=== PATIENT | male | born 1970 | race Two or more races ===

== ENCOUNTER 2016-07-17 14:03 | Emergency (ER) | payer MEDICAID ==
[~2016-07-17] VITALS: Ht 167.6 cm; Wt 68.0 kg
[~2016-07-17 14:03] MED LIST: IBUPROFEN600 MG ORAL; TRAMADOL HCL50 MG ORAL
[2016-07-17 14:44] LABS: APPEARANCE,URINE CLEAR; KETONES,URINE NEGATIVE (NEGATIVE); LEUKOCYTE ESTERASE ,URINE 1+ (NEGATIVE); NITRITE,URINE NEGATIVE (NEGATIVE); PH,URINE 5 (4.5-8.0); PROTEIN,URINE NEGATIVE (NEGATIVE); UROBILINOGEN,URINE NORMAL MG/DL (0.0-1.0)
--- NOTE | 2016-07-17 14:55 | Emergency Room Report ---
History of Present Illness General Chief Complaint: Back Pain-No Injury Source: Patient Present Illness HPI 46 YO Male presents to the ED c/o testicular pain progressive since last night, rated as 6/10 in severity , no relief from IBU PO, denies swelling and erythema. Patient denies any discharge. Pt. reports low back pain on the left side as well. denies straining, constipation, diarrhea or recent illness. pt. reports recent heavy lifting. denies hx of hernias. denies dysuria, frequency, urgency or hematuria. denies trauma. denies abdominal pain, rashes, hx of STD or recent unprotected intercourse. denies swollen or tender lymph nodes. Denies CP, Palpitations, LOC, AMS, dizziness, Changes in Vision, Sensation, paresthesias, or a sudden severe headache. Allergies: Coded Allergies: No Known Allergies (Unverified , 04/21/15) Patient History Past Medical History: see triage record Past Surgical History: none Pertinent Family History: none Immunizations: UTD Reviewed Nursing Documentation: PMH: Agreed, PSxH: Agreed Nursing Documentation-PMH Hx Cardiac Problems: No Hx Hypertension: Yes - high cholesterol Hx Asthma: No Hx COPD: No Hx Diabetes: No Hx Cancer: No Hx Gastrointestinal Problems: No Hx Dialysis: No History Of Psychiatric Problem: No Hx Neurological Problems: No Hx Cerebrovascular Accident: No Hx Seizures: No Review of Systems All Other Systems: negative except mentioned in HPI Physical Exam Vital Signs Date Time Temp Pulse Resp B/P Pulse Ox O2 Delivery O2 Flow Rate FiO2 07/17/16 14:07 98.2 78 16 160/100 99 Room Air Sp02 EP Interpretation: reviewed, normal, abnormal - elevated BP General Appearance: no apparent distress, alert, GCS 15, non-toxic Head: normocephalic, atraumatic Eyes: bilateral eye PERRL, bilateral eye normal inspection ENT: hearing grossly normal, normal pharynx, no angioedema, normal voice Neck: full range of motion, supple/symm/no masses Respiratory: chest non-tender, lungs clear, normal breath sounds, speaking full sentences Cardiovascular #1: regular rate, rhythm, no edema Gastrointestinal: normal bowel sounds, non tender, soft, no guarding, no rebound Rectal: deferred Genitourinary: normal inspection, no CVA tenderness, penis normal, scrotum normal, other - mild TTP to the left Testicle, negative phren's , cremasteric reflex is intact bilaterally. Musculoskeletal: back normal, gait/station normal, normal range of motion, non- tender Neurologic: alert, oriented x3, responsive, motor strength/tone normal, sensory intact, speech normal Psychiatric: judgement/insight normal, memory normal, mood/affect normal Skin: normal color, no rash, warm/dry, well hydrated Lymphatic: no adenopathy Medical Decision Making PA Attestation Dr. street is my supervising Physician whom patient management has been discussed with. Diagnostic Impression: Primary Impression: Testicular pain, unspecified Additional Impression: Hydrocele in adult ER Course 46 YO Male presents to the ED c/o testicular pain progressive since last night, rated as 6/10 in severity , no relief from IBU PO, denies swelling and erythema. Patient denies any discharge. Pt. reports low back pain on the left side as well. denies straining, constipation, diarrhea or recent illness. pt. reports recent heavy lifting. denies hx of hernias. denies dysuria, frequency, urgency or hematuria. denies trauma. denies abdominal pain, rashes, hx of STD or recent unprotected intercourse. denies swollen or tender lymph nodes. Ddx considered but are not limited to testicular torsion, epididymitis, orchitis , abscess, hernia, muscle strain Vital signs: are WNL, pt. is afebrile H&PE are most consistent with possible hernia, torsion or epididymitis is less likely as cremasterics reflex is intact and then sign is negative there is no relief upon elevation ORDERS: -UA: few bacteria, mild elevation in leuks, no WBC's and moderate epithelial, UTI vs contamination, will treat prophylactically - Urine G & C RNA: Pending. - Testicular ultrasound: bilateral hydrocele, and LAD, no torsion noted, no evidence of hernia ED INTERVENTIONS: - Tylenol PO -Rocephin IM DISCHARGE: At this time pt. is stable for d/c to home. Will provide printed patient care instructions, and any necessary prescriptions. Care plan and follow up instructions have been discussed with the patient prior to discharge. Last Vital Signs Date Time Temp Pulse Resp B/P Pulse Ox O2 Delivery O2 Flow Rate FiO2 07/17/16 14:07 98.2 78 16 160/100 99 Room Air Disposition: HOME, SELF-CARE Condition: Stable Scripts Ibuprofen* (MOTRIN*) 600 Mg Tablet 600 MG ORAL THREE TIMES A DAY, #20 TAB 0 Refills Prov: Jaylyn Fitch 07/17/16 Doxycycline Hyclate* (VIBRAMYCIN*) 100 Mg Capsule 100 MG ORAL EVERY 12 HOURS for 7 Days, #14 CAP 0 Refills Prov: Jaylyn Fitch 07/17/16 Patient Instructions: Epididymitis, Hydrocele, Adult Additional Instructions: Take medications as directed. Follow up with PCP in 3-5 days Return sooner to ED if new symptoms occur, or current symptoms become worse. - Please note that this Emergency Department Report was dictated using [employer] technology software, occasionally this can lead to erroneous entry secondary to interpretation by the dictation equipment. Jaylyn Fitch July 17, 2016 14:55
[2016-07-17 14:59] LABS: BACTERIA,URINE FEW /HPF; RBC,URINE 0-2 /HPF (0 - 0); SQUAMOUS EPITHELIAL CELL,UR OCCASIONAL /LPF (NONE/OCC)
[2016-07-17 15:01] VITALS: BP 160/100
[2016-07-17] MEDS ORDERED: IBUPROFEN600 MG ORAL (17:01)
[2016-07-17] MEDS ORDERED: VIBRAMYCIN100 MG ORAL (17:01)
--- NOTE | 2016-07-17 17:10 | Diagnostic Imaging Report ---
Indications: Bilateral scrotal pain Technique: Trans-scrotal real-time grayscale and duplex Doppler imaging was performed Findings: Comparison: None Right testis 4.6 x 2.6 x 3.5 cm. Normal contour and echotexture without focal abnormality. Right epididymis nonenlarged, mildly heterogeneous. 3 mm cystic structure emanates from its head.. Both demonstrate normal blood flow on duplex Doppler imaging. Moderate amount of adjacent fluid. Small varicocele. Overlying scrotal wall unremarkable. Mildly prominent lymph nodes right inguinal region up to 2.2 cm, unremarkable in appearance. Left testis 4.4 x 2.4 x 3.3 cm. Normal contour and echotexture without focal abnormality. Left epididymis normal in size and echotexture without focal abnormality. Both demonstrate normal blood flow on duplex Doppler imaging. Small amount of adjacent fluid. No varicocele. Overlying scrotal wall unremarkable. IMPRESSION: No evidence of testicular torsion Small bilateral hydroceles, right through the left, nonspecific Mild heterogeneity of right epididymis may represent sequela of previous inflammation. No evidence of acute inflammation. Small exophytic cyst right epididymal head. Small right varicocele Mild prominence of right inguinal lymph nodes, nonspecific, may be reactive to adjacent inflammatory process.
[2016-07-17 17:17] VITALS: BP 137/91
[2016-07-17 17:18] VITALS: BP 137/91
== END 2016-07-17 17:19 | disposition home or self-care (01) ==
LOC: EMR 14:30
DX: N50.812 Left testicular pain (principal); N43.3 Hydrocele, unspecified; I10 Essential (primary) hypertension
CPT/HCPCS: 76870; 81003; 87491; 87590; 96372; 99284; J0696

== ENCOUNTER 2016-10-18 18:32 | Emergency (ER) | payer MEDICAID ==
[~2016-10-18] VITALS: Ht 162.6 cm; Wt 108.9 kg
[~2016-10-18 18:32] MED LIST changes: +VIBRAMYCIN100 MG ORAL
[2016-10-18 18:52] VITALS: BP 132/82
[2016-10-18 19:10] LABS: APPEARANCE,URINE CLEAR; KETONES,URINE NEGATIVE (NEGATIVE); LEUKOCYTE ESTERASE ,URINE NEGATIVE (NEGATIVE); NITRITE,URINE NEGATIVE (NEGATIVE); PH,URINE 6 (4.5-8.0); PROTEIN,URINE NEGATIVE (NEGATIVE); UROBILINOGEN,URINE NORMAL MG/DL (0.0-1.0)
[2016-10-18 19:23] LABS: BASOPHILS % (AUTO) 1.3 % (0.0-2.0); EOSINOPHILS % (AUTO) 3.8 % (0.0-3.0); LYMPHOCYTES % (AUTO) 38.7 % (20.0-45.0); MEAN CORPUSCULAR HGB CONC 35.4 G/DL (32.0-36.0); MEAN CORPUSCULAR VOLUME 90 FL (80-99); MEAN PLATELET VOLUME 7.2 FL (6.5-10.1); MONOCYTES % (AUTO) 5.7 % (1.0-10.0); NEUTROPHILS % (AUTO) 50.6 % (45.0-75.0); PLATELET COUNT 233 K/UL (150-450); RED BLOOD COUNT 4.52 M/UL (4.70-6.10); RED CELL DISTRIBUTION WIDTH 12.4 % (11.6-14.8); WHITE BLOOD COUNT 9.7 K/UL (4.8-10.8)
[2016-10-18 19:58] LABS: ALANINE AMINOTRANSFERASE 30 U/L (3-41); ALBUMIN/GLOBULIN RATIO 1.9 (1.0-2.7); ANION GAP 10 (5-15); ASPARTATE AMINO TRANSFERASE 22 U/L (5-40); CALCIUM 9.5 mg/dL (8.6-10.2); CARBON DIOXIDE 27 mEQ/L (20-30); CHLORIDE 101 mEQ/L (98-107); CREATININE 0.8 mg/dL (0.7-1.2); GLOMERULAR FILTRATION RATE > 60 mL/min (>60); HEMOLYSIS 2; LIPASE 45 U/L (< 60); POTASSIUM 3.7 mEQ/L (3.4-4.9); SODIUM 138 mEQ/L (135-145); TOTAL PROTEIN 7.1 g/dL (6.6-8.7)
[2016-10-18 20:00] VITALS: BP 130/79
[2016-10-18] MEDS ORDERED: RANITIDINE HCL150 MG ORAL (20:16)
[2016-10-18 20:20] VITALS: BP 130/79
--- NOTE | 2016-10-18 20:40 | Emergency Room Report ---
History of Present Illness General Chief Complaint: Pain Source: Patient Present Illness HPI 46-year-old male presents ED complaining of abdominal pain. States that when he drinks sugary drink he started to feel pain on his left side of abdomen. happening x 1 month. Denies any pain at this time. Denies any pain with food or with water or other drinks. Denies any blood in stool. Denies any nausea or vomiting. Denies any diarrhea. No other aggravating relieving factors. No other system symptoms Allergies: Coded Allergies: No Known Allergies (Unverified , 04/21/15) Patient History Past Medical History: none Past Surgical History: none Pertinent Family History: none Social History: Denies: alcohol use, drug use, smoking Immunizations: UTD Reviewed Nursing Documentation: PMH: Agreed, PSxH: Agreed Nursing Documentation-PMH Hx Cardiac Problems: No Hx Hypertension: Yes - high cholesterol Hx Asthma: No Hx COPD: No Hx Diabetes: No Hx Cancer: No Hx Gastrointestinal Problems: No Hx Dialysis: No Hx Neurological Problems: No Hx Cerebrovascular Accident: No Hx Seizures: No Review of Systems All Other Systems: negative except mentioned in HPI Physical Exam Vital Signs Date Time Temp Pulse Resp B/P Pulse Ox O2 Delivery O2 Flow Rate FiO2 10/18/16 18:43 97.9 70 15 132/82 97 Room Air Sp02 EP Interpretation: reviewed, normal General Appearance: no apparent distress, alert, GCS 15, non-toxic Head: normocephalic, atraumatic Eyes: bilateral eye PERRL, bilateral eye normal inspection ENT: hearing grossly normal, normal pharynx, no angioedema, normal voice Neck: full range of motion, supple/symm/no masses Respiratory: chest non-tender, lungs clear, normal breath sounds, speaking full sentences Cardiovascular #1: regular rate, rhythm, no edema Cardiovascular #2: 2+ carotid (R), 2+ carotid (L), 2+ radial (R), 2+ radial (L) , 2+ dorsalis pedis (R), 2+ dorsalis pedis (L) Gastrointestinal: normal bowel sounds, non tender, soft, non-distended, no guarding, no rebound Rectal: deferred Genitourinary: normal inspection, no CVA tenderness Musculoskeletal: back normal, gait/station normal, normal range of motion, non- tender Neurologic: alert, oriented x3, responsive, motor strength/tone normal, sensory intact, speech normal Psychiatric: judgement/insight normal, memory normal, mood/affect normal, no suicidal/homicidal ideation Reflexes: 3+ bicep (R), 3+ bicep (L), 3+ tricep (R), 3+ tricep (L), 3+ knee (R) , 3+ knee (L) Skin: normal color, no rash, warm/dry, well hydrated Lymphatic: no adenopathy Medical Decision Making Diagnostic Impression: Primary Impression: Abdominal pain Qualified Codes: R10.32 - Left lower quadrant pain ER Course Hospital Course 46-year-old M presents to ED with abdominal pain with drinking sugary drinks. Differential diagnosis includes-appendicitis, cholecystitis, small bowel obstruction, gastritis, Clinical course Patient placed on stretcher. After initial history and physical I ordered labs , IV fluids Labs - no leukocytosis, electrolytes ok, LFTs normal Abdomen is soft. No guarding or rebound. Labs unremarkable. I see no reason for imaging at this time. Recommend reducing sugary drinks as patient is overweight and borderline diabetic on labs. I feel this is a highly complex case requiring extensive working including EKG/ Rhythm strip, Xray/CT/US, Blood/urine lab work, repeat exams while in ED, and administration of strong opiates/narcotics for pain control, admission to hospital or close patient follow up. Diagnosis - abdominal pain Stable and discharged to home with Rx Zantac. Followup with PMD. Return to ED if symptoms recur or worsen Labs Test 10/18/16 19:00 White Blood Count 9.7 K/UL (4.8-10.8) Red Blood Count 4.52 M/UL (4.70-6.10) Hemoglobin 14.5 G/DL (14.2-18.0) Hematocrit 40.8 % (42.0-52.0) Mean Corpuscular Volume 90 FL (80-99) Mean Corpuscular Hemoglobin 32.0 PG (27.0-31.0) Mean Corpuscular Hemoglobin Concent 35.4 G/DL (32.0-36.0) Red Cell Distribution Width 12.4 % (11.6-14.8) Platelet Count 233 K/UL (150-450) Mean Platelet Volume 7.2 FL (6.5-10.1) Neutrophils (%) (Auto) 50.6 % (45.0-75.0) Lymphocytes (%) (Auto) 38.7 % (20.0-45.0) Monocytes (%) (Auto) 5.7 % (1.0-10.0) Eosinophils (%) (Auto) 3.8 % (0.0-3.0) Basophils (%) (Auto) 1.3 % (0.0-2.0) Urine Color Pale yellow Urine Appearance Clear Urine pH 6 (4.5-8.0) Urine Specific [place] 1.020 (1.005-1.035) Urine Protein Negative (NEGATIVE) Urine Glucose (UA) Negative (NEGATIVE) Urine Ketones Negative (NEGATIVE) Urine Occult Blood Negative (NEGATIVE) Urine Nitrite Negative (NEGATIVE) Urine Bilirubin Negative (NEGATIVE) Urine Urobilinogen Normal MG/DL (0.0-1.0) Urine Leukocyte Esterase Negative (NEGATIVE) Sodium Level 138 mEQ/L (135-145) Potassium Level 3.7 mEQ/L (3.4-4.9) Chloride Level 101 mEQ/L (98-107) Carbon Dioxide Level 27 mEQ/L (20-30) Anion Gap 10 (5-15) Blood Urea Nitrogen 17 mg/dL (7-23) Creatinine 0.8 mg/dL (0.7-1.2) Estimat Glomerular Filtration Rate > 60 mL/min (>60) Glucose Level 142 mg/dL (74-106) Calcium Level 9.5 mg/dL (8.6-10.2) Total Bilirubin 0.4 mg/dL (0.0-1.2) Aspartate Amino Transf (AST/SGOT) 22 U/L (5-40) Alanine Aminotransferase (ALT/SGPT) 30 U/L (3-41) Alkaline Phosphatase 96 U/L (40-129) Total Protein 7.1 g/dL (6.6-8.7) Albumin 4.7 g/dL (3.5-5.2) Globulin 2.4 g/dL Albumin/Globulin Ratio 1.9 (1.0-2.7) Lipase 45 U/L (< 60) Last Vital Signs Date Time Temp Pulse Resp B/P Pulse Ox O2 Delivery O2 Flow Rate FiO2 10/18/16 20:20 97.9 66 16 130/79 99 Room Air Status: improved Disposition: HOME, SELF-CARE Condition: Stable Scripts Ranitidine Hcl* (ZANTAC*) 150 Mg Tablet 150 MG ORAL TWICE A DAY, #30 TAB Prov: HAZEL GARSIA M.D. 10/18/16 Patient Instructions: Abdominal Pain, Adult, [id number] HAZEL GARSIA M.D. Oct 18, 2016 20:40
== END 2016-10-18 20:20 | disposition home or self-care (01) ==
LOC: EMR 19:10
DX: R10.9 Unspecified abdominal pain (principal); I10 Essential (primary) hypertension
CPT/HCPCS: 36415; 80053; 81003; 82962; 83690; 85025; 96360

== ENCOUNTER 2018-01-01 09:28 | Emergency (ER) | payer MEDICAID ==
[~2018-01-01] VITALS: Ht 144.8 cm; Wt 111.1 kg
[~2018-01-01 09:28] MED LIST changes: +RANITIDINE HCL150 MG ORAL
[2018-01-01 09:56] VITALS: BP 160/105
[2018-01-01] MEDS ORDERED: Cyclobenzaprine 10mg Tab ORAL ONE (10:00)
--- NOTE | 2018-01-01 10:01 | Emergency Room Report ---
History of Present Illness General Chief Complaint: Lower Back Pain or Injury Source: Patient Present Illness HPI 47-year-old male with history of hypertension, tobacco use presents with low back pain on his right side, reports started 2 days after he was doing some heavy lifting moving furniture. He reports he's taken ibuprofen partial relief , he denies any urinary complaints, bowel bladder incontinence, numbness, tingling, weakness, fevers, chills, reports the pain is worse with movement, reports no radiation of pain, reported some moderate achy, nonradiating sensation. Allergies: Coded Allergies: No Known Allergies (Unverified , 04/21/15) Patient History Past Medical History: see triage record Social History: Reports: smoking Reviewed Nursing Documentation: PMH: Agreed; PSxH: Agreed Nursing Documentation-PMH Hx Cardiac Problems: No Hx Hypertension: Yes - high cholesterol Hx Asthma: No Hx COPD: No Hx Diabetes: No Hx Cancer: No Hx Gastrointestinal Problems: No Hx Dialysis: No Hx Neurological Problems: No Hx Cerebrovascular Accident: No Hx Seizures: No Review of Systems All Other Systems: negative except mentioned in HPI Physical Exam Vital Signs Date Time Temp Pulse Resp B/P (MAP) Pulse Ox O2 Delivery O2 Flow Rate FiO2 01/01/18 09:42 98.2 65 18 160/105 97 Room Air Sp02 EP Interpretation: reviewed, normal General Appearance: no apparent distress, alert, non-toxic Head: normocephalic Eyes: bilateral eye normal inspection, bilateral eye PERRL, bilateral eye EOMI ENT: normal ENT inspection, hearing grossly normal, normal pharynx, no angioedema, normal voice, moist mucus membranes Neck: normal inspection, full range of motion, supple, supple/symm/no masses Respiratory: chest non-tender, lungs clear, normal breath sounds, chest symmetrical, palpation of chest normal Cardiovascular #1: normal peripheral pulses, regular rate, rhythm Cardiovascular #2: 2+ radial (R), 2+ radial (L), 2+ dorsalis pedis (R), 2+ dorsalis pedis (L) Gastrointestinal: normal inspection, non tender, soft, no mass, no guarding, no rebound Rectal: deferred Genitourinary: normal inspection, no CVA tenderness Musculoskeletal: back normal, gait/station normal, normal range of motion, non- tender, no calf tenderness, Ida's Sign negative Neurologic: alert, responsive, molded goods operator III-XII nml as tested, motor strength/tone normal, SLR negative, sensory intact, speech normal Psychiatric: judgement/insight normal, memory normal, mood/affect normal, no suicidal/homicidal ideation Skin: normal color, no rash, warm/dry, normal turgor Lymphatic: no adenopathy Medical Decision Making Diagnostic Impression: Primary Impression: Low back pain ER Course Patient with normal exam, will urinalysis, normal x-ray, will discharge with muscle relaxants, he's already on ibuprofen so will recommend he continue and follow-up with PMD. Other X-Ray Diagnostic Results Other X-Ray Diagnostic Results : X-Ray ordered: L spine # of Views/Limited Vs Complete: Limited Indication: Pain EP Interpretation: Yes Interpretation: no dislocation, no soft tissue swelling, no fractures, nonspecific bowel gas, no sbo Impression: No acute disease Electronically Signed by: Liza Barber MD Last Vital Signs Date Time Temp Pulse Resp B/P (MAP) Pulse Ox O2 Delivery O2 Flow Rate FiO2 01/01/18 09:56 98.2 72 18 160/105 97 Room Air Disposition: HOME, SELF-CARE Condition: Stable Referrals: NON PHYSICIAN (PCP) LIZA BARBER M.D Jan 01, 2018 10:01
[2018-01-01 10:26] LABS: APPEARANCE,URINE CLEAR; BILIRUBIN, URINE NEGATIVE (NEGATIVE); COLOR,URINE PALE YELLOW; GLUCOSE, URINE (UA) NEGATIVE (NEGATIVE); KETONES,URINE NEGATIVE (NEGATIVE); LEUKOCYTE ESTERASE ,URINE NEGATIVE (NEGATIVE); NITRITE,URINE NEGATIVE (NEGATIVE); PH,URINE 6 (4.5-8.0); PROTEIN,URINE NEGATIVE (NEGATIVE); UROBILINOGEN,URINE NORMAL MG/DL (0.0-1.0)
--- NOTE | 2018-01-01 10:45 | Diagnostic Imaging Report ---
Indication: Back pain Comparison: None Findings: 3 views of the lumbar spine were obtained. The intervertebral discs appear relatively normal in height with the minimal reduction in height at L3-4 and L4-5. Alignment is normal. The bones are osteopenic slightly. Minimal and calcification of the annulus noted in the several discs in the lower thoracic spine. IMPRESSION: Osteopenia. Mild degenerative disc disease
[2018-01-01] MEDS ORDERED: CYCLOBENZAPRINE10 MG ORAL (10:47)
[2018-01-01 10:57] VITALS: BP 160/105
== END 2018-01-01 10:58 | disposition home or self-care (01) ==
LOC: EMR 09:52
DX: M54.5 Low back pain (principal); I10 Essential (primary) hypertension; M85.80 Other specified disorders of bone density and structure, unspecified site; M51.36 Other intervertebral disc degeneration, lumbar region
CPT/HCPCS: 72020; 81003; 99283